=== PATIENT | male | born 1970 | race Caucasian/White ===

== ENCOUNTER 2017-11-17 12:03 | Inpatient (IN) | payer SELFPAY ==
--- NOTE | 2017-11-17 12:24 | DR.GENAD ---
HPI - PCP Primary Care Physician: ELIEL - HPI Comment HPI Comment: PATIENTS SAID HE HAD NEAR SYNCOPAL EPISODES AT HOME TODAY. PATIENT HAVE LOW GRADE FEVER. - Complaint/Symptoms Chief Complaint Doctors Comments: LEFT SHOULDER PAIN, ANOREXIA AND GENERALIZE WEAKNESS TIMES 5 DAYS. Chief Complaint:: PATIENT STATED THAT HE HAS BEEN VERY WEAK AND NOT EATING FOR THE PAST 5 DAYS. PT STATED THAT HE IS HAVING SEVERE LT SHLD PAIN THAT STARTED WEDNESDAY. - Nurses notes reviewed Nurses Notes Review: Yes - Source History Provided: Family Member - Mode of Arrival Mode of Arrival: Wheelchair - Timing Onset of Chief Complaint: 11/12/17 Came on: Suddenly - Duration Duration: Constant Duration: Days - Severity Severity: Moderate PMH - PMH Past Medical History: Yes Past Medical History: Anxiety, Arthritis, COPD, Dementia Past Medical History Comment: NECK,PELIC,BACK PAIN Past Surgical History: No - Family History History of Family Medical Conditions: No - Social History Does patient currently use any type of tobacco product: No Have you used tobacco products in the last 12 months: No Type of Tobacco Use: None Does any household member use tobacco: No Alcohol Use: None Lives With: Family Lives Where: Home - infectious screening In the last 2 months have you had wt loss of >10#?: NO Have you had fever, night sweats or hemotysis?: No Have you traveled outside the country in the last 6 months?: No Isolation: Standard ROS - Review of Systems Constitutional: Diaphoresis, Fever, Weakness, Fatigue. negative: Chills Eyes: No Symptoms Reported. negative: Eye Pain, Blurred Vision, Discharge ENTM: No Symptoms Reported. negative: Ear Pain, Nose Discharge, Nose Congestion , Throat Pain Respiratoy: Non-Productive Cough, Short of Breath, Wheezing. negative: Hemoptysis Cardiovascular: negative: Edema, Cyanosis Gastrointestinal/Abdominal: Nausea Genitourinary: negative: Dysuria, Frequency, Hematuria Neurological: Headache, Weakness, Dizziness Musculoskeletal: Right, Left, Shoulder, Foot Integumentary: Bruises (RT FOOT) Hematologic/Lymphatic: No Symptoms Reported Endocrine: No Symptoms Reported All Other Systems: Reviewed and Negative PE - Vital Signs Vitals: Temperature 99.9 F Pulse Rate 94 Respiratory Rate 20 Blood Pressure 170/96 O2 Sat by Pulse Oximetry 98 - General Limitations: No Limitations General Appearance: Alert - Head Head Exam: Normal Inspection - Eyes Eye exam: Normal Appearance - ENT ENT Exam: Normal External Ear Exam External Ear Exam: Normal External Inspection TM/Canal Exam: Bilateral Normal Nose Exam: Normal Nose Exam Mouth Exam: Normal Inspection Throat Exam: Normal Inspection - Neck Neck Exam: Trachea Midline - Chest Chest Inspection: Symmetric Chest Wall Rise - Respiratory Respiratory Exam: Normal Lung Sounds Bilat Respiratory Exam: Bilateral Wheezing, Bilateral Rhonchi, Lower Wheezing, Lower Rhonchi - Cardiovascular Cardiovascular Exam: Regular Rate, Normal Rhythm, Normal Heart Sounds - Abdominal Exam Abdominal Exam: Normal Bowel Sounds, Soft. negative: Tenderness - Extremities Extremities Exam: Tenderness (RT FOOT AND TOE AND RT SHOULDER TENDER.) - Neurologic Neurological Exam: Alert, Oriented X3 - Psychiatric Psychiatric Exam: Normal Affect, Normal Mood - Skin Skin Exam: Normal Color MDM - Additional Information Additional Information Obtained From: Family - Differential Diagnosis Differential Diagnosis: GENERALIZE WEAKNESS, SEPTIC ARTHRITIS, UTI, Course - Treatment Treatment: SEE ORDERS. - Consultation Consultation Comments: DISCUSS PATIENT WITH DR. JULIAN. WILL ADMIT PATIENT. - Education/Counseling Education/Counseling: Patient, Family, Education Educated On: Diagnosis, Needs for Follow Up ROR - Labs Reviewed Laboratory Results Reviewed?: Yes Result Diagrams: 11/19/17 04:25 11/19/17 04:25 Laboratory: WBC 13.3 X10^3/uL (3.6-10.0) H 11/17/17 12:55 RBC 5.27 X10^6/uL (4.7-6.0) 11/17/17 12:55 Hgb 15.7 g/dL (13.5-18.0) 11/17/17 12:55 Hct 44.5 % (42.0-54.0) 11/17/17 12:55 MCV 84.4 fL (80.0-100.0) 11/17/17 12:55 MCH 29.8 pg (27.0-34.0) 11/17/17 12:55 MCHC 35.3 g/dL (33.0-35.0) H 11/17/17 12:55 RDW 13.9 % (11.6-16.5) 11/17/17 12:55 Plt Count 185 X10^3/uL (150.0-450.0) 11/17/17 12:55 MPV 8.9 fL (7.4-11.0) 11/17/17 12:55 Neut % (Auto) 79.8 % (42.0-75.0) H 11/17/17 12:55 Lymph % (Auto) 7.5 % (21.0-51.0) L 11/17/17 12:55 Cecil % (Auto) 12.2 % (0.0-13.0) 11/17/17 12:55 Eos % (Auto) 0.1 % (0.9-2.9) L 11/17/17 12:55 Baso % (Auto) 0.4 % (0.2-1.0) 11/17/17 12:55 Neut # (Auto) 10.7 x10^3/uL (2.2-4.8) H 11/17/17 12:55 Lymph # (Auto) 1.0 X10^3/uL (1.3-2.9) L 11/17/17 12:55 Cecil # (Auto) 1.6 x10^3/uL (0.3-0.8) H 11/17/17 12:55 Eos # (Auto) 0.0 x10^3/uL (0.0-0.2) 11/17/17 12:55 Baso # (Auto) 0.1 X10^3/uL (0.0-0.1) 11/17/17 12:55 Absolute Nucleated RBC 0.0 /100WBC 11/17/17 12:55 Sodium 129 mmol/L (136-145) L 11/17/17 12:55 Corrected Sodium 130 mmol/L (136-145) L 11/17/17 12:55 Potassium 3.5 mmol/L (3.5-5.1) 11/17/17 12:55 Chloride 92 mmol/L (98-107) L 11/17/17 12:55 Carbon Dioxide 28.2 mmol/L (21-32) 11/17/17 12:55 BUN 8 mg/dL (7-18) 11/17/17 12:55 Creatinine 0.80 mg/dL (0.70-1.30) 11/17/17 12:55 Est GFR (MDRD) Af Amer > 60 (>60) 11/17/17 12:55 Est GFR (MDRD) Non-Af > 60 (>60) 11/17/17 12:55 Glucose 160 mg/dL (65-99) H 11/17/17 12:55 Calcium 9.1 mg/dL (8.5-10.1) 11/17/17 12:55 Corrected Calcium 10.1 mg/dL (8.5-10.1) 11/17/17 12:55 Total Bilirubin 0.60 mg/dL (0.2-1.0) 11/17/17 12:55 AST 136 Units/L (15-37) H 11/17/17 12:55 ALT 230 Units/L (12-78) H 11/17/17 12:55 Alkaline Phosphatase 173 Units/L (46-116) H 11/17/17 12:55 Creatine Kinase 297 Units/L (39-308) 11/17/17 12:55 CK-MB (CK-2) 1.4 ng/mL (0-4.0) 11/17/17 12:55 CK/CKMB % Calc 0.5 % (<4) 11/17/17 12:55 Troponin I < 0.02 ng/mL (0-1.5) 11/17/17 12:55 Total Protein 7.8 g/dL (6.4-8.2) 11/17/17 12:55 Albumin 2.8 g/dL (3.4-5.0) L 11/17/17 12:55 Globulin 5.0 g/dL (2.5-4.5) H 11/17/17 12:55 Albumin/Globulin Ratio 0.6 Ratio (1.1-2.1) L 11/17/17 12:55 Amylase 38 Units/L (25-115) 11/17/17 12:55 Lipase 222 Units/L (73-393) 11/17/17 12:55 - XRAY XRAY Interpreted by: Radiologist XRAY Findings: REPORT DISCUSS WITH PATIENT AND HIS . - EKG Rhythm: NSR (EKG NOTED) - Diagnosis Discharge Problem: Generalized weakness, Hyponatremia Hypertension Qualifiers: Hypertension type: essential hypertension Qualified Code(s): I10 - Essential ( primary) hypertension - Discharge Plan Disposition: ADMITTED INPATIENT Condition: Stable - Follow ups/Referrals - Instructions
[2017-11-17 13:12] LABS: BASOPHILS # (AUTO) 0.1 X10^3/uL (0.0-0.1); BASOPHILS % (AUTO) 0.4 % (0.2-1.0); EOSINOPHILS % (AUTO) 0.1 % (0.9-2.9); HEMATOCRIT 44.5 % (42.0-54.0); HEMOGLOBIN 15.7 g/dL (13.5-18.0); LYMPHOCYTES % (AUTO) 7.5 % (21.0-51.0); MEAN CORPUSCULAR HEMOGLOBIN 29.8 pg (27.0-34.0); MEAN CORPUSCULAR HGB CONC 35.3 g/dL (33.0-35.0); MEAN CORPUSCULAR VOLUME 84.4 fL (80.0-100.0); MEAN PLATELET VOLUME 8.9 fL (7.4-11.0); MONOCYTES # (AUTO) 1.6 x10^3/uL (0.3-0.8); MONOCYTES % (AUTO) 12.2 % (0.0-13.0); NEUTROPHILS # (AUTO) 10.7 x10^3/uL (2.2-4.8); NEUTROPHILS % (AUTO) 79.8 % (42.0-75.0); PLATELET COUNT 185 X10^3/uL (150.0-450.0); RED BLOOD COUNT 5.27 X10^6/uL (4.7-6.0); RED CELL DISTRIBUTION WIDTH 13.9 % (11.6-16.5); WHITE BLOOD COUNT 13.3 X10^3/uL (3.6-10.0)
[2017-11-17 13:19] LABS: BLOOD UREA NITROGEN 8 mg/dL (7-18); CALCIUM 9.1 mg/dL (8.5-10.1); CARBON DIOXIDE 28.2 mmol/L (21-32); CHLORIDE 92 mmol/L (98-107); COR NA(FOR HYPERGLY) 130 mmol/L (136-145); SODIUM 129 mmol/L (136-145); TROPONIN I < 0.02 ng/mL (0-1.5); eGFR BLACK RACES > 60 (>60); eGFR NON BLACK RACES > 60 (>60)
[2017-11-17 13:23] LABS: ALANINE AMINOTRANSFERASE 230 Units/L (12-78); ALBUMIN 2.8 g/dL (3.4-5.0); ALKALINE PHOSPHATASE 173 Units/L (46-116); ASPARTATE AMINO TRANSFERASE 136 Units/L (15-37); CKMB % 0.5 % (<4); COR CA(FOR HYPOALB) 10.1 mg/dL (8.5-10.1); CREATINE KINASE 297 Units/L (39-308); CREATINE KINASE MB 1.4 ng/mL (0-4.0); TOTAL PROTEIN 7.8 g/dL (6.4-8.2)
--- NOTE | 2017-11-17 13:33 | RAD ---
History: Left shoulder pain Study: Three views left shoulder including AP internal and external rotation and a scapular Y-view Comparison: None Findings: There is no fracture or subluxation. There is no soft tissue calcification. The clavicle an d AC and glenohumeral joints are unremarkable. Impression: Negative Reported By:
--- NOTE | 2017-11-17 13:35 | RAD ---
History: Right foot pain Study: Three views right foot, AP oblique and lateral projections. Comparison: None Findings: There is no fracture or dislocation. There are cystic erosions of the head of the 4th metat arsal with joint space narrowing. The tarsal bones are intact. Impression: Abnormal 4th metatarsal-phalangeal joint with changes suggesting possible gout or other n onspecific inflammatory arthritis Reported By:
--- NOTE | 2017-11-17 13:35 | RAD ---
HISTORY: Altered mental status. Study: AP portable chest Comparison: None Findings: Minimal atelectatic change/infiltrate is noted in the right lung base. Otherwise , the lungs clear. The heart size is normal. No acute bony abnormalities are identified. IMPRESSION: 1. Minimal atelectatic change/infiltrate the right lung base. 2. Otherwise, no radiographic evidence of acute cardiopulmonary disease. Reported By:
--- NOTE | 2017-11-17 13:48 | CT ---
HISTORY: Altered mental status Study: CT brain without contrast Comparison: None Technique: Multiple axial images of the brain were obtained from the skull base to the vertex without administra tion of IV contrast. Findings: No acute intraparenchymal hemorrhage or mass can be identified. No extra-axial fluid collections are seen. No alteration in the attenuation of the brain parenchyma can be identified to suggest acute o r subacute ischemic change. The ventricular system is symmetric and nondilated. Patchy areas of decr eased attenuation within the periventricular, subcortical, and subinsular white matter suggest change s of chronic small vessel ischemic disease. If symptoms or clinical concern persist recommend contin ued follow-up for further evaluation. IMPRESSION: No acute intracranial process can be identified. Findings suggesting changes of chronic small vessel ischemic disease. Reported By:
[2017-11-17] MEDS ORDERED: TORADOL 60 MG VIAL IM ONE (14:33)
[2017-11-17] MEDS ORDERED: TORADOL 60 MG VIAL ONE (14:34)
[2017-11-17 15:41] LABS: AMYLASE 38 Units/L (25-115); LIPASE 222 Units/L (73-393)
[2017-11-17] MEDS ORDERED: XANAX PO ONE (15:56)
[2017-11-17] MEDS ORDERED: PERCOCET TAB 5/325 MG PO ONE (15:56)
[2017-11-17] MEDS ORDERED: PERCOCET TAB 5/325 MG ONE (15:58)
[2017-11-17] MEDS ORDERED: XANAX ONE (15:58)
[2017-11-17] MEDS ORDERED: NICOTINE PATCH TD ONE (16:03)
[2017-11-17 16:46] LABS: BILIRUBIN,URINE NEGATIVE (NEGATIVE); BLOOD/HEMOGLOBIN,URINE 5+ (NEGATIVE); GLUCOSE, URINE NEGATIVE (NEGATIVE); KETONES,URINE NEGATIVE (NEGATIVE); LEUKOCYTE ESTERASE ,URINE 3+ (NEGATIVE); NITRITES,URINE POSITIVE (NEGATIVE); PROTEIN,URINE 2+ (NEGATIVE); UROBILINOGEN,URINE 2+ (NORMAL)
[2017-11-17 16:48] LABS: APPEARANCE,URINE SLIGHTLY HAZY (CLEAR); COLOR,URINE AMBER (YELLOW)
[2017-11-17 16:54] LABS: BACTERIA,URINE 3+ /HPF (NEGATIVE); RBC,URINE TNTC /HPF (NONE SEEN); SQUAMOUS EPITHELIAL CELL,UR FEW /HPF (NEGATIVE)
[2017-11-17 19:11] VITALS: BMI 27.0
[2017-11-17] MEDS: NEURONTIN TAB 600 MG PO SCH (20:49)
[2017-11-17] MEDS: ASPIRIN 81 MG CHEWTAB PO SCH (20:50)
[2017-11-17] MEDS: ROCEPHIN VIAL 1 GM 1 GM in NS 100 ML IV + SPIKE MINIBAG* 100 ML IV SCH (20:50)
[2017-11-17] MEDS: TENORMIN PO SCH (20:50)
[2017-11-17] MEDS ORDERED: NS 1000 ML 1,000 ML ONE (20:52)
[2017-11-18] MEDS: PERCOCET TAB 5/325 MG PO PRN ×3 (00:07→13:20)
[2017-11-18] MEDS: NS 1000 ML 1,000 ML IV SCH ×3 (01:06→15:05)
[2017-11-18 07:08] LABS: ALANINE AMINOTRANSFERASE 354 Units/L (12-78); ALBUMIN 2.5 g/dL (3.4-5.0); ALKALINE PHOSPHATASE 217 Units/L (46-116); ASPARTATE AMINO TRANSFERASE 253 Units/L (15-37); BLOOD UREA NITROGEN 10 mg/dL (7-18); CALCIUM 8.7 mg/dL (8.5-10.1); CARBON DIOXIDE 26.1 mmol/L (21-32); CHLORIDE 96 mmol/L (98-107); COR CA(FOR HYPOALB) 9.9 mg/dL (8.5-10.1); COR NA(FOR HYPERGLY) 131 mmol/L (136-145); SODIUM 131 mmol/L (136-145); TOTAL PROTEIN 7.1 g/dL (6.4-8.2); eGFR BLACK RACES > 60 (>60); eGFR NON BLACK RACES > 60 (>60)
[2017-11-18 07:33] LABS: BASOPHILS % (AUTO) 0.3 % (0.2-1.0); EOSINOPHILS % (AUTO) 0.3 % (0.9-2.9); LYMPHOCYTES # (AUTO) 1.6 X10^3/uL (1.3-2.9); LYMPHOCYTES % (AUTO) 10.4 % (21.0-51.0); MEAN CORPUSCULAR HEMOGLOBIN 29.4 pg (27.0-34.0); MEAN CORPUSCULAR VOLUME 83.9 fL (80.0-100.0); MEAN PLATELET VOLUME 9.4 fL (7.4-11.0); MONOCYTES # (AUTO) 1.6 x10^3/uL (0.3-0.8); MONOCYTES % (AUTO) 10.6 % (0.0-13.0); NEUTROPHILS # (AUTO) 11.7 x10^3/uL (2.2-4.8); NEUTROPHILS % (AUTO) 78.4 % (42.0-75.0); PLATELET COUNT 212 X10^3/uL (150.0-450.0); RED BLOOD COUNT 4.77 X10^6/uL (4.7-6.0); RED CELL DISTRIBUTION WIDTH 14.3 % (11.6-16.5); WHITE BLOOD COUNT 14.9 X10^3/uL (3.6-10.0)
[2017-11-18] MEDS ORDERED: ZESTRIL TAB 20 MG ONE (08:06)
[2017-11-18] MEDS: ROCEPHIN VIAL 1 GM 1 GM in NS 100 ML IV + SPIKE MINIBAG* 100 ML IV SCH (08:39)
[2017-11-18] MEDS: ZESTRIL TAB 20 MG PO SCH (08:39)
[2017-11-18] MEDS: NEURONTIN TAB 600 MG PO SCH ×2 (08:39→20:52)
[2017-11-18] MEDS: ASPIRIN 81 MG CHEWTAB PO SCH ×2 (08:40→20:52)
[2017-11-18] MEDS ORDERED: MOBIC TAB 15 MG PO SCH (09:00)
[2017-11-18] MEDS: TORADOL 15 MG VIAL IVP PRN ×2 (09:54→19:54)
--- NOTE | 2017-11-18 10:23 | RAD ---
HISTORY: Constipation Study: Flat and upright abdomen, PA chest Comparison: None Findings: The abdominal gas pattern is nonspecific and nonobstructive. No pneumoperitoneum is identified. Multi ple bilateral renal calculi are present. No pneumoperitoneum is identified. Moderate stool is present throughout the colon. The lungs are clear. The right hemidiaphragm is elevated. IMPRESSION: No acute abdominal abnormality Moderate stool Reported By:
--- NOTE | 2017-11-18 10:30 | CT ---
History: Constipation, hyponatremia Study: CT abdomen and pelvis without contrast. Sagittal and coronal reformations were provided. Comparison: None Findings: There is elevation of the right hemidiaphragm. There is subsegmental atelectasis or consoli dation with some air bronchograms in the right lung base anteriorly over the elevated hemidiaphragm. There is no pleural effusion. The liver and spleen and pancreas and adrenal glands are unremarkable. There are several bilateral renal calculi without hydronephrosis. The largest calculus is in the lowe r pole of left kidney measuring just over 1 cm diameter. The gallbladder is contracted. There is no b iliary dilatation. There is no ascites or adenopathy. There is no bowel distention or inflammatory ch anges. There is no aneurysm. No hernia is demonstrated. The appendix is normal. There are no signific ant bony abnormalities. The prostate is normal in size. Impression: 1. Several bilateral prominent sized renal calculi without hydronephrosis. 2. Subsegmental atelectasis or consolidation at the right lung base with an elevated right hemidiaphr agm Reported By:
[2017-11-18 12:03] LABS: BILIRUBIN,URINE 1+ (NEGATIVE); BLOOD/HEMOGLOBIN,URINE 3+ (NEGATIVE); GLUCOSE, URINE NEGATIVE (NEGATIVE); KETONES,URINE NEGATIVE (NEGATIVE); LEUKOCYTE ESTERASE ,URINE 3+ (NEGATIVE); NITRITES,URINE NEGATIVE (NEGATIVE); PROTEIN,URINE 2+ (NEGATIVE); UROBILINOGEN,URINE 4+ (NORMAL)
[2017-11-18 12:10] LABS: APPEARANCE,URINE CLEAR (CLEAR); BACTERIA,URINE TRACE /HPF (NEGATIVE); COLOR,URINE AMBER (YELLOW); SQUAMOUS EPITHELIAL CELL,UR RARE /HPF (NEGATIVE)
[2017-11-18] MEDS ORDERED: NICOTINE PATCH TD ONE (15:57)
[2017-11-18] MEDS: XANAX PO PRN (16:34)
[2017-11-18] MEDS: TENORMIN PO SCH (20:52)
[2017-11-19] MEDS: TORADOL 15 MG VIAL IVP PRN (03:08)
[2017-11-19] MEDS: NS 1000 ML 1,000 ML IV SCH (04:00)
[2017-11-19] MEDS: XANAX PO PRN (04:35)
[2017-11-19] MEDS: PERCOCET TAB 5/325 MG PO PRN ×2 (06:02)
[2017-11-19 06:13] LABS: BASOPHILS % (AUTO) 0.2 % (0.2-1.0); EOSINOPHILS # (AUTO) 0.1 x10^3/uL (0.0-0.2); EOSINOPHILS % (AUTO) 0.9 % (0.9-2.9); HEMATOCRIT 37.9 % (42.0-54.0); HEMOGLOBIN 13.2 g/dL (13.5-18.0); LYMPHOCYTES # (AUTO) 1.7 X10^3/uL (1.3-2.9); LYMPHOCYTES % (AUTO) 10.6 % (21.0-51.0); MEAN CORPUSCULAR HEMOGLOBIN 29.8 pg (27.0-34.0); MEAN CORPUSCULAR HGB CONC 34.8 g/dL (33.0-35.0); MEAN CORPUSCULAR VOLUME 85.6 fL (80.0-100.0); MEAN PLATELET VOLUME 9.3 fL (7.4-11.0); MONOCYTES # (AUTO) 1.5 x10^3/uL (0.3-0.8); MONOCYTES % (AUTO) 9.8 % (0.0-13.0); NEUTROPHILS # (AUTO) 12.3 x10^3/uL (2.2-4.8); NEUTROPHILS % (AUTO) 78.5 % (42.0-75.0); PLATELET COUNT 258 X10^3/uL (150.0-450.0); RED BLOOD COUNT 4.42 X10^6/uL (4.7-6.0); WHITE BLOOD COUNT 15.7 X10^3/uL (3.6-10.0)
[2017-11-19 06:49] LABS: ALANINE AMINOTRANSFERASE 365 Units/L (12-78); ALBUMIN 2.3 g/dL (3.4-5.0); ALKALINE PHOSPHATASE 242 Units/L (46-116); ASPARTATE AMINO TRANSFERASE 143 Units/L (15-37); BLOOD UREA NITROGEN 12 mg/dL (7-18); CALCIUM 8.5 mg/dL (8.5-10.1); CARBON DIOXIDE 27.9 mmol/L (21-32); CHLORIDE 99 mmol/L (98-107); COR CA(FOR HYPOALB) 9.9 mg/dL (8.5-10.1); COR NA(FOR HYPERGLY) 137 mmol/L (136-145); CREATININE 0.78 mg/dL (0.70-1.30); SODIUM 136 mmol/L (136-145); TOTAL PROTEIN 6.7 g/dL (6.4-8.2); eGFR BLACK RACES > 60 (>60); eGFR NON BLACK RACES > 60 (>60)
[2017-11-19] MEDS ORDERED: POTASSIUM CHL 60 MEQ/NS 0.45% 500 ML IV PRN (07:41)
[2017-11-19] MEDS ORDERED: K-RIDER 10 MEQ/NS 100 ML 10 MEQ/100 ML BAG IV PRN (07:41)
[2017-11-19] MEDS ORDERED: POTASSIUM CHLORIDE LIQ 20 MEQ UDC PO PRN (07:41)
[2017-11-19] MEDS ORDERED: K-LYTE EFFERVESCENT PO PRN (07:41)
[2017-11-19] MEDS ORDERED: POTASSIUM CHL 40 MEQ/NS 0.45% 500 ML IV PRN (07:41)
[2017-11-19] MEDS ORDERED: MAGNESIUM SULFATE 1 GM/100 mL PREMIX 1 GM/100 ML BAG IV PRN (07:41)
[2017-11-19] MEDS ORDERED: ZESTRIL TAB 20 MG ONE (08:34)
[2017-11-19] MEDS: ROCEPHIN VIAL 1 GM 1 GM in NS 100 ML IV + SPIKE MINIBAG* 100 ML IV SCH (09:06)
[2017-11-19] MEDS: NEURONTIN TAB 600 MG PO SCH (09:06)
[2017-11-19] MEDS: ZESTRIL TAB 20 MG PO SCH (09:06)
[2017-11-19] MEDS: ASPIRIN 81 MG CHEWTAB PO SCH (09:06)
[2017-11-19 10:03] VITALS: BP 111/66
== END 2017-11-19 09:30 | disposition left against medical advice (07) | DRG 312 ==
LOC: ER 12:28 → MED/SURG 16:47
PROVIDERS: ADMIT Internal Medicine; ATTEND Internal Medicine
DX: R55 Syncope and collapse (principal); E87.1 Hypo-osmolality and hyponatremia; I10 Essential (primary) hypertension; R53.1 Weakness; M25.512 Pain in left shoulder
CPT/HCPCS: 36415; 70450; 71045; 73030; 73630; 74022; 74176; 80053; 80307; 81001; 82150; 82274; 82550; 82553; 83690; 83735; 84484; 84550; 85025; 87086; 93005; 93010; 94760; 96365; 99284; A4222; G0434; J0696; J1885